=== PATIENT | female | born 1995 | race Caucasian/White ===

== ENCOUNTER 2017-04-22 13:57 | Inpatient (IN) | payer OTHER ==
[~2017-04-22] VITALS: Ht 167.6 cm; Wt 76.4 kg
[2017-04-22] VITALS (16 sets, daily range): BP systolic 130–160; BP diastolic 79–105
[~2017-04-22 13:57] MED LIST: BIRTH CONTROL PILLS; MOTRIN600 MG PO; NORCO 5/3251 TABLET PO
[2017-04-22] MEDS ORDERED: PRENATAL TABLE1 EAC3 PO (14:14)
[2017-04-22 19:09] LABS: EOSINOPHIL (%) 0.4 % (0-5); EOSINOPHIL COUNT 0.1 K/uL (0-0.3); HEMATOCRIT 35.9 % (36.0-46.0); IMMATURE GRANULOCYTE (%) 0.9 % (0.0-0.7); IMMATURE GRANULOCYTE COUNT 0.1 K/uL; INSTRUMENT ABS NEUTROPHIL CT 11.3 K/uL; LYMPHOCYTE COUNT 1.1 K/uL (1.0-2.8); MCH 30.6 PG (29.0-34.0); MCHC 33.7 G/DL (30.0-36.0); MCV 90.9 FL (83-99); MEAN PLAT.VOLUME 10.7 uM^3 (9.5-12.4); MONOCYTE COUNT 0.5 K/uL (0-0.8); NEUTROPHIL (%) 85.8 % (45-76); NEUTROPHIL COUNT 11.3 K/uL (1.8-6.4); PLATELET COUNT 233 K/uL (156-360); RBC DIS.WIDTH-CV 12.4 % (11.8-14.6); RBC DIS.WIDTH-SD 40.8 % (39-53); RED BLOOD COUNT 3.95 M/uL (3.80-5.20); WHITE BLOOD COUNT 13.1 K/uL (4.1-10.2)
[2017-04-22 19:45] LABS: UR CREATININE CONCENTRATION ND MG/DL
[2017-04-22 19:46] LABS: HEMATOCRIT ND % (36.0-46.0); RED BLOOD COUNT ND M/uL (3.80-5.20); WHITE BLOOD COUNT ND K/uL (4.1-10.2)
[2017-04-22 19:47] LABS: EOSINOPHIL (%) ND % (0-5); IMM.PLATELET FRACTION ND (1-7); MCH ND PG (29.0-34.0); MCHC ND G/DL (30.0-36.0); MCV ND FL (83-99); MEAN PLAT.VOLUME ND uM^3 (9.5-12.4); MONOCYTE (%) ND % (3-12); NEUTROPHIL (%) ND % (45-76); PLATELET COUNT ND K/uL (156-360); RBC DIS.WIDTH-CV ND % (11.8-14.6); RBC DIS.WIDTH-SD ND % (39-53)
[2017-04-22 19:48] LABS: ABS NEUTROPHIL COUNT ND; ACANTHOCYTES ND; ADD /PCK? ND; ADD DIFF? ND; ANISOCYTOSIS ND; ATYPICAL LYMPHOCYTE ND %; BAND NEUTROPHILS ND % (0-8.0); BASOPHIL COUNT ND K/uL (0-0.1); BASOPHILS ND %; BURR CELLS ND; DELETE MACHINE DIFF? ND; EOSINOPHIL ABS CT ND; EOSINOPHIL COUNT ND K/uL (0-0.3); EOSINOPHILS ND % (0-5.0); GIANT PLATELETS ND; HELMET CELLS ND; HEM NON-PRINT COM 1 ND; HEMATOLOGY COMMENT ND; HEMATOLOGY COMMENT 1 ND; HYPERSEGMENTATION ND; HYPOCHROMASIA ND; IMMATURE GRANULOCYTE (%) ND % (0.0-0.7); IMMATURE GRANULOCYTE COUNT ND K/uL; INSTRUMENT ABS NEUTROPHIL CT ND K/uL; LARGE PLATELETS ND; LYMPHOCYTE COUNT ND K/uL (1.0-2.8); LYMPHOCYTES ND % (15.0-45.0); MACROCYTES ND; MEGAKARYOCYTE ND; METAMYELOCYTES ND %; MICROCYTOSIS ND; MONOCYTE COUNT ND K/uL (0-0.8); MYELOCYTES ND %; NEUTROPHIL COUNT ND K/uL (1.8-6.4); NRBC (%) ND /100 WBC (0-0); NRBC COUNT ND K/uL (0-0); NUCLEATED RBC'S ND; OVALOCYTES ND; PLAT.SUFFICIENCY ND; PLATELET CLUMPS ND; POIKILOCYTOSIS ND; POLYCHROMASIA ND; ROULEAUX ND; SCHISTOCYTES ND; SEG.NEUTROPHILS ND % (46.0-76.0); SICKLE CELLS ND; SMUDGE CELLS ND; SPHEROCYTES ND; STOMATOCYTES ND; TARGET CELLS ND; TEAR DROP CELLS ND; TOTAL CELLS COUNTED ND; TOX.VACUOLIZATION ND; TOXIC GRANULATION ND; USER ID ND
[2017-04-22 19:49] LABS: CARBON DIOXIDE (BICARBONATE) ND MEQ/L (20-31); CHLORIDE ND MEQ/L (99-109); FASTING STATUS ND; GFR ESTIMATE (CALCULATED) ND mL/min/; GLUCOSE ND mg/dL (70-99); HEM NON-PRINT COM 3 ND; POTASSIUM ND MEQ/L (3.7-5.4); SODIUM ND MEQ/L (136-147); UREA NITROGEN (BUN) ND mg/dL (9-23); URIC ACID ND mg/dL (3.1-9.2)
[2017-04-22 19:50] LABS: ALKALINE PHOSPHATASE ND IU/L (3-129); ANION GAP ND MEQ/L (2-14); COMMENT (LAB VIEW ONLY) ND; SAMPLE HEMOLYSIS CHECK ND; SAMPLE ICTERIC CHECK ND; SAMPLE LIPEMIA CHECK ND; TOTAL BILIRUBIN ND MG/DL (0.0-1.0)
[2017-04-23] VITALS (13 sets, daily range): BP systolic 130–173; BP diastolic 66–103
[2017-04-23] MEDS ORDERED: IBUPROFEN800 MG PO (05:02)
[2017-04-24 07:00] VITALS: BP 152/97
[2017-04-24 14:45] VITALS: BP 134/91
[2017-04-24 23:57] VITALS: BP 147/96
[2017-04-25 07:42] VITALS: BP 148/93
[2017-04-25 07:43] VITALS: BP 152/100
[2017-04-25] MEDS ORDERED: NORMODYNE,TRAN200 MG PO (10:10)
[2017-04-25 14:29] VITALS: BP 126/77
== END 2017-04-25 16:15 | disposition home or self-care (01) | DRG 775 ==
LOC: LDRP-OP 13:57 → 2WEST 13:59 → LDRP-OP 05-27 14:26
PROVIDERS: Nurse Practitioner
PROC: 10907ZC Drainage of Amniotic Fluid, Therapeutic from Products of Conception, Via Natural or Artificial Opening (ICD-10-PCS; 2017-04-22)
PROC: 10E0XZZ Delivery of Products of Conception, External Approach (ICD-10-PCS; principal; 2017-04-23)
DX: O13.4 Gestational [pregnancy-induced] hypertension without significant proteinuria, complicating childbirth (principal); O77.0 Labor and delivery complicated by meconium in amniotic fluid; O99.824 Streptococcus B carrier state complicating childbirth; Z3A.39 39 weeks gestation of pregnancy; Z37.0 Single live birth; Z88.0 Allergy status to penicillin; Z98.1 Arthrodesis status
CPT/HCPCS: 80053; 82570; 84156; 84550; 85025; 85025 91; G0378; J0595; J7120; Q0169

== ENCOUNTER 2018-03-25 19:52 | Outpatient (CLI) | payer OTHER ==
[~2018-03-25] VITALS: Ht 170.2 cm; Wt 63.6 kg
[~2018-03-25 19:52] MED LIST changes: +IBUPROFEN800 MG PO; +NORMODYNE,TRAN200 MG PO; +PRENATAL TABLE1 EAC3 PO
[2018-03-25 20:10] VITALS: BP 138/87
[2018-03-25] MEDS ORDERED: VALTREX50 MG/ML PO (20:26)
== END 2018-03-25 20:57 | disposition home or self-care (01) ==
LOC: LDRP-OP 19:52 → 2WEST 19:53
DX: O26.892 Other specified pregnancy related conditions, second trimester (principal); R10.9 Unspecified abdominal pain; W01.0XXA Fall on same level from slipping, tripping and stumbling without subsequent striking against object, initial encounter; Y93.9 Activity, unspecified; Y92.9 Unspecified place or not applicable; Y99.0 Civilian activity done for income or pay; Z86.19 Personal history of other infectious and parasitic diseases; Z98.1 Arthrodesis status; Z87.891 Personal history of nicotine dependence; Z3A.26 26 weeks gestation of pregnancy
CPT/HCPCS: 59025; G0378